=== PATIENT | male | born 1980 | race Caucasian/White ===

== ENCOUNTER 2025-02-06 20:04 | Emergency (ER) | payer BC, SELFPAY ==
[2025-02-06 20:05] VITALS: BP 163/99; PULSE 84; RESP 18; TEMP 36.7; O2SAT 98
--- NOTE | 2025-02-06 20:09 | ED_ITS ---
HPI - Dental/Oral General Chief complaint: Dental/Oral Stated complaint: tooth pain Time Seen by Provider: 02/06/25 20:08 History of Present Illness HPI Narrative: 44-year-old male patient generally healthy is here with complaints of right lower molar pain. Patient apparently has had pain in the right lower wound for a few days and was started on amoxicillin at a different facility. He states that the pain is still worse and he tried to use temporary dental filling which made the pain worse. He has tried to remove most of the filling and has not been able to find a dentist to follow up with. He reports no fever or chills. Reports no trouble swallowing. Reports no trouble talking. He rates pain at 10/. Related Data Allergies Allergy/AdvReac Type Severity Reaction Status Date / Time Sulfa (Sulfonamide Allergy Unknown Verified 02/06/25 20:22 Antibiotics) Review of Systems Review of Systems: All systems reviewed & are unremarkable except as noted in HPI and below Exam Narrative: Alert male patient in significant pain distress. Stable vital signs HEENT: patient has fullness along the right mandibular area with some tenderness in that area but no fluctuant mass. Number 31 is completely decayed and partially broken with the pulp exposed. Few traces of dental filling is attached to the remnant of the tooth. The gingival margins are swollen and red. No drooling. Tongue movement is intact and not impaired. Neck is supple. No induration in the anterior neck. No adenopathy. Lungs are clear. Heart tones are regular. Rest of the exam is unremarkable. MDM - Dental/Oral MDM Narrative Medical decision making narrative: 44-year-old male patient with dental abscess currently on amoxicillin is here with complaints of pain in the right lower molar. History and physical examination is documented. Patient is treated with viscous lidocaine locally to the right lower molar however he keeps removing it and drinking cold water stating that that gives him relief. He has also received 1 dose of hydrocodone. Plan to discharge home with a prescription for lidocaine for local application as well as 7 tablets of hydrocodone Discharge Plan Discharge Clinical Impression: Toothache, Dental caries, Dental abscess Patient Disposition: Home Condition: Stable Instructions: Antibiotic Form, Dental Abscess (ED), Toothache (ED) Additional Instructions: take Tylenol 650 mg and ibuprofen 600 mg every 6-8 hours as needed for pain use the medications as prescribed here today. Continue the antibiotics and follow up with the dental clinic as discussed Patient Language: Burkinan Prescriptions: New lidocaine HCl [Lidocaine Viscous] 2 % solution 1 applic mucous membrane QID Qty: 100 0RF hydrocodone-acetaminophen 5-325 mg tablet 1 tablet PO Q8H PRN (Reason: pain) Qty: 7 0RF Follow-up/Referrals: UNKNOWN,DOCTOR [Non-Staff] Stand Alone Forms: Work/School Release IP
[2025-02-06] MEDS: HYDROcodone/acetaminophen (*CRX) 5-325 MG TABLET 1 TAB PO (20:27)
[2025-02-06] MEDS: LIDOCAINE 2% VISC SOLN 15 ML UDC PO (20:30)
== END 2025-02-06 21:02 | disposition home or self-care (01) ==
PROVIDERS: Emergency Provider Emergency Medicine
DX: K04.7 Periapical abscess without sinus (principal); K02.9 Dental caries, unspecified
CPT/HCPCS: 99283; A9270